=== PATIENT | female | born 1995 | race Caucasian/White ===

== ENCOUNTER 2017-03-17 07:29 | Emergency (ER) | payer SELFPAY ==
[~2017-03-17] VITALS: Ht 160 cm; Wt 54.4 kg
[2017-03-17 07:30] VITALS: BP 119/77
== END 2017-03-17 08:12 | disposition home or self-care (01) ==
LOC: ER 07:31
DX: K62.89 Other specified diseases of anus and rectum (principal); F17.200 Nicotine dependence, unspecified, uncomplicated
CPT/HCPCS: A4606; Z7502; Z7610

== ENCOUNTER 2020-08-13 03:55 | Emergency (ER) | payer SELFPAY ==
[~2020-08-13] VITALS: Ht 165.1 cm; Wt 54.4 kg
--- NOTE | 2020-08-13 04:10 | NUR ---
PT AAOX4. [employer] AND [employer] PALCED ON A HOLD DUE TO PT'S BOY FRIEND STATING PT WANTED TO CUT HER WRIST AT HOME. UPON ARRVAL LAC NOTED ON PT'S L WRIST. MD AT BEDSIDE. PT DENIES SI AND HI. VSS. NO ACUTE DISTRESS NOTED.
--- NOTE | 2020-08-13 04:15 | NUR ---
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
[2020-08-13 04:25] LABS: BASOPHILS # (AUTO) 0.1 /CMM (0.0-0.2); BASOPHILS % (AUTO) 1.1 % (0.0-2.0); EOSINOPHILS % (AUTO) 1.5 % (0.0-6.0); HEMATOCRIT 40 % (33-45); HEMOGLOBIN 13.5 g/dL (11.5-14.8); LYMPHOCYTES # (AUTO) 3.2 /CMM (0.8-4.8); LYMPHOCYTES % (AUTO) 42.9 % (20.0-44.0); MEAN CORPUSCULAR HGB CONC 34 g/dl (31.0-36.0); MEAN CORPUSCULAR VOLUME 93 fL (82-100); MONOCYTES # (AUTO) 0.6 /CMM (0.1-1.30); MONOCYTES % (AUTO) 7.5 % (2.0-12.0); NEUTROPHILS # (AUTO) 3.5 /CMM (1.8-8.9); PLATELET COUNT (AUTO) 288 /CMM (150-450); RED BLOOD CELL COUNT(AUTO) 4.32 MIL/uL (4.0-5.2); WHITE BLOOD COUNT (AUTO) 7.5 K/uL (4.3-11.0)
[2020-08-13 04:35] LABS: CALCIUM, SERUM 8.6 mg/dL (8.5-10.1); CREATININE 0.8 mg/dL (0.6-1.3); POTASSIUM 3.7 mmol/L (3.5-5.1)
[2020-08-13 04:45] LABS: ALBUMIN 3.9 g/dL (3.4-5.0); BILIRUBIN,TOTAL 0.1 mg/dL (0.2-1.0); TOTAL PROTEIN, SERUM 7.4 g/dL (6.4-8.2)
[2020-08-13] MEDS ORDERED: LIDOCAINE /MPF 1% VIAL 5 ML VIAL ONE (04:47)
--- NOTE | 2020-08-13 04:47 | NUR ---
AT BED SIDE FOR LACERATION CARE
--- NOTE | 2020-08-13 04:51 | NUR ---
MD AT BEDSIDE FOR SUTURES
--- NOTE | 2020-08-13 04:52 | NUR ---
URINE COLLECTED, SENT TO LAB
[2020-08-13 05:08] LABS: BILIRUBIN,URINE NEGATIVE (NEGATIVE); BLOOD, URINE SMALL Ery/uL (NEGATIVE); COLOR,URINE YELLOW (YELLOW); LEUKOCYTE ESTERASE ,URINE NEGATIVE (NEGATIVE); NITRITE, URINE NEGATIVE (NEGATIVE); PROTEIN,URINE NEGATIVE (NEGATIVE); UGLUCOSE NEGATIVE (NEGATIVE); UROBILINOGEN,URINE 0.2 EU/dL (0.2)
--- NOTE | 2020-08-13 05:30 | NUR ---
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
--- NOTE | 2020-08-13 06:16 | NUR ---
US TECH AT BED SIDE
--- NOTE | 2020-08-13 07:47 | NUR ---
[employer]S ARCHITECT AT BEDSIDE.
[2020-08-13 08:14] VITALS: BP 118/73
--- NOTE | 2020-08-13 08:14 | NUR ---
Patient discharged to home in stable condition. Written and verbal after care instructions given. Patient verbalizes understanding of instruction.
== END 2020-08-13 08:27 | disposition home or self-care (01) ==
LOC: ER 03:56
DX: S61.512A Laceration without foreign body of left wrist, initial encounter (principal); W25.XXXA Contact with sharp glass, initial encounter; Y93.89 Activity, other specified; Y92.89 Other specified places as the place of occurrence of the external cause; Y99.8 Other external cause status
CPT/HCPCS: 12001; 36415; 76856; 80048; 80076; 80299; 80307; 80320; 81001; 84702; 85025; 86850; 99285; A6403; J3490; G0480